=== PATIENT | female | born 1985 | race Caucasian/White ===

== ENCOUNTER → 2019-02-13 10:16 | Outpatient (CLI) | payer OTHER, SELFPAY ==
--- NOTE | 2019-02-13 | DI.MRI.S_ITS ---
PROCEDURE: MR HIP LT WO CON INDICATIONS: Pain in left hip TECHNIQUE: Noncontrast coronal T1 spin echo and STIR through the bony pelvis. Coronal and axial T2 fast spin echo with fat saturation, sagittal T1 spin echo, and oblique axial T2 fast spin echo with fat saturation through the hip. COMPARISON: [facility], CR, XR PELVIS WITH LATERAL HIP LEFT, 02/10/2019, 14:02. FINDINGS: Image quality: Excellent. Bones and joints: Bone marrow of the pelvic ring and proximal femurs demonstrate normal overall signal. No intraosseous lesions or fractures. No avascular necrosis of the femoral heads. The visualized lower lumbar spine appears normally aligned. Tendons and ligaments: The gluteus medius and minimus tendons appear intact, without associated muscle atrophy. The nearby proximal iliotibial band also appears intact. The iliopsoas tendon appears intact, without adjacent bursal fluid collections or evidence for impingement syndrome. The origin of the hamstring tendon is intact at the ischial tuberosity, as well as the associated sacrotuberous ligament. The straight and reflected heads of the rectus femoris muscle origin appear intact, as well as the conjoint tendon. The ligamentum teres appears intact where visualized. Labrum and cartilage: There is a suspected small tear of the anterosuperior labrum with evaluation limited in the absence of intra-articular contrast. Cartilage surface of the femoral head appears of normal thickness. The alpha angle of the femur is within normal limits at less than 55 degrees. Soft tissues: Visualized muscles demonstrate normal bulk and internal signal. Quadratus femoris muscle demonstrates no internal edema to suggest ischiofemoral impingement. The proximal sciatic neurovascular bundle appears normal adjacent to the hamstring tendons. No free pelvic fluid. Bladder wall thickness is normal. Visualized bowel loops appear normal in caliber. There are small cysts within the left ovary measuring up to 1.5 cm likely representing prominent follicles. IMPRESSION: 1. Suspected small tear of the anterosuperior labrum. Further evaluation may be obtained with an MR arthrogram if clinically indicated. Dictated by: Miki Samaniego M.D. on 02/13/2019 at 16:40 Approved by: Miki Samaniego M.D. on 02/13/2019 at 16:45
== END ==
PROVIDERS: Visit Provider Orthopaedic Surgery
DX: M25.552 Pain in left hip (principal)
CPT/HCPCS: 73721

== ENCOUNTER → 2020-01-20 13:33 | Outpatient (CLI) | payer OTHER, SELFPAY ==
--- NOTE | 2020-01-20 13:34 | DI.MRI.S_ITS ---
PROCEDURE: MR PELVIS WO/W CON INDICATIONS: evaluate for uterine adenomyosis TECHNIQUE: Coronal HASTE, sagittal breath-hold T2 FSE; axial T1 FSE with and without fat saturation through the pelvis. Optional long- and short-axis uterine nonbreath-hold T2 FSE through the uterus. Sagittal or axial dynamic VIBE during administration of contrast. Post-contrast axial or coronal VIBE/2-D FLASH with fat saturation from the iliac crests to the symphysis. Optional diffusion weighted imaging and ADC may be performed. COMPARISON: [facility], US, US PELVIC + TRANSVAG + DOPPLER, 12/30/2019, 0:07. [facility], CT, CT ABDOMEN PELVIS WITH CONTRAST, 12/30/2019, 2:50. FINDINGS: Image quality: There is mild motion artifact. Uterus: Uterus is enlarged with heterogeneous appearance of the myometrium. Endometrium is normal in thickness. Junctional zone demonstrates abnormal thickening measuring up to 1.4 cm in thickness with indistinct margins. There are a few small cystic foci along the interface with the endometrium. There are prominent myometrial vessels with heterogeneous marked enhancement of the myometrium following contrast demonstration. No discrete uterine mass identified. There are small nabothian cysts in the cervix. There are bilateral enlarged parametrial vessels are demonstrated. Adnexa: The left ovary is at the upper limits of normal in size, measuring up to 4.5 cm with multiple follicles of varying sizes. The right ovary is normal in size with a few small follicles. No suspicious adnexal masses. Urinary system: Bladder wall is normal in thickness. Distal ureters are non distended. Urethra appears normal in morphology. Nodes and vessels: No pelvic or inguinal adenopathy by size criteria. Iliac vessels are normal in size. Bowel and peritoneum: There is a small amount of free fluid in the pelvis which appears within physiologic limits. Inferior colon and small bowel loops are normal in caliber. Soft tissues: No inguinal hernias. No findings of pelvic floor incompetence in the absence of provocation. Bones: Marrow demonstrates normal overall signal. IMPRESSION: 1. Thickening of the junctional zone with indistinct margins and small cystic foci along the endometrium compatible with adenomyosis. 2. Enlarged uterus with heterogeneous hypervascularity of the myometrium and prominent parametrial vessels. The findings also compatible with adenomyosis. Dictated by: Miki Samaniego M.D. on 01/20/2020 at 17:23 Approved by: Miki Samaniego M.D. on 01/20/2020 at 17:45
== END ==
PROVIDERS: Referring Provider Obstetrics & Gynecology; Visit Provider Obstetrics & Gynecology
DX: R10.2 Pelvic and perineal pain (principal); G89.29 Other chronic pain
CPT/HCPCS: 72197

== ENCOUNTER → 2025-02-04 08:39 | Outpatient (CLI) | payer OTHER, SELFPAY ==
--- NOTE | 2025-02-04 08:42 | DI.MRI.S_ITS ---
PROCEDURE: MR HEAD/BRAIN WO CON INDICATIONS: MIGRAINES TECHNIQUE: Noncontrast axial T1 spin echo, axial T2 fast spin echo, sagittal and axial FLAIR, coronal T2 fast spin echo, axial gradient echo, axial diffusion and ADC through the brain. COMPARISON: None. FINDINGS: Image quality: Excellent. CSF Spaces: Basal cisterns are patent. No extra-axial fluid collections. Ventricles are normal in size and shape. Brain: No intracranial masses or hemorrhage. Neely/white matter interface is normal. Brainstem appears normal. Diffusion-weighted images demonstrate no acute infarct. No chronic ischemic insults. Normal intravascular flow voids are present. Skull and face: Calvarium has normal marrow signal. Orbits appear normal. Sinuses: Sinuses and mastoids are clear. IMPRESSION: Negative examination. No explanation for headaches. Dictated by: Pedro Tom M.D. on 02/04/2025 at 12:22 Approved by: Pedro Tom M.D. on 02/04/2025 at 12:23
== END ==
PROVIDERS: Visit Provider Naturopath
DX: G43.909 Migraine, unspecified, not intractable, without status migrainosus (principal)
CPT/HCPCS: 70551

== ENCOUNTER → 2025-05-11 17:29 | Outpatient (CLI) | payer OTHER, SELFPAY ==
--- NOTE | 2025-05-11 17:40 | DI.MRI.S_ITS ---
PROCEDURE: MR HEAD/BRAIN WO/W CON INDICATIONS: dizziness TECHNIQUE: Noncontrast axial T1 spin echo, axial T2 fast spin echo, sagittal and axial FLAIR, coronal T2 fast spin echo, axial gradient echo, axial diffusion and ADC through the brain. After the administration of contrast, axial and coronal and sagittal 3D VIBE or T1 spin echo with fat saturation through the brain. COMPARISON: [facility], , MR HEAD/BRAIN WO CON, 02/04/2025, 8:54. FINDINGS: Image quality: Excellent. CSF Spaces: Basal cisterns are patent. No extra-axial fluid collections. Ventricles are normal in size and shape. Brain: No midline shift. No acute intracranial hemorrhage or mass effect. No abnormal intracranial enhancement. The brainstem appears normal. Diffusion-weighted images demonstrate no acute infarct. No chronic ischemic insults. Normal intravascular flow voids are present. Skull and face: Calvarial marrow is normal in signal. Orbits appear normal. Sinuses: Sinuses and mastoids appear clear. IMPRESSION: No significant intracranial abnormality or abnormal enhancement. Approved by: Riley Paul M.D. on 05/12/2025 at 8:39
== END ==
PROVIDERS: Referring Provider Naturopath; Visit Provider Naturopath
DX: R42 Dizziness and giddiness (principal)
CPT/HCPCS: 70553; A9579